=== PATIENT | male | born 1950 | race Caucasian/White ===

== ENCOUNTER 2018-10-20 09:45 | Emergency (ER) | payer OTHER, SELFPAY ==
[2018-10-20 09:55] VITALS: BP 161/96; PULSE 88; RESP 14; TEMP 36.3; O2SAT 99
--- NOTE | 2018-10-20 10:29 | ED.SKABFB ---
HPI - Skin/Abscess/Foreign Bdy General Chief complaint: Skin/Abscess/Foreign Body Stated complaint: possible internal hemorrhoids Time Seen by Provider: 10/20/18 10:09 Source: patient Mode of arrival: ambulatory History of Present Illness HPI narrative: Patient is a 68-year-old male here for evaluation of what he thinks is an internal hemorrhoid. Patient states that yesterday he had pain with having a bowel movement. He states that he does feel a lump around his rectum. Denies any constipation or diarrhea. No blood in his stool. No fevers. No abdominal pain. Called his primary care doctor today who informed him to come to the emergency department. Related Data Previous Rx's Medication Instructions Recorded sildenafil [Viagra] 1 tab PO SEE INSTRUCTIONS #10 tab 08/05/16 sulfacetamide sodium-sulfur 57 gm TP QDAY #1 bot 08/05/16 simvastatin 1 tab PO QDAY #90 tab 08/04/17 amoxicillin-pot clavulanate 1 tab PO BID #14 tab 10/20/18 [Augmentin] docusate sodium [Colace] 100 mg PO BID PRN #20 cap 10/20/18 hydrocodone-acetaminophen [[place]] 1 tab PO Q4-6H PRN #7 tab 10/20/18 Allergies Allergy/AdvReac Type Severity Reaction Status Date / Time lisinopril [LISINOPRIL] AdvReac Severe Anaphylaxis Verified 10/20/18 12:18 Review of Systems Constitutional Denies fever(s) Gastrointestinal Gastrointestinal: Denies abdominal pain, Denies change in bowel habits, Denies constipation, Denies cramping, Denies diarrhea, Denies loose stools, Denies nausea and Denies vomiting Comments: Pain around the rectum with bowel movements per Genitourinary Denies dysuria, Denies flank pain and Denies testicular pain Musculoskeletal Denies myalgias and Denies arthralgias Integumentary/Breasts Denies lesions and Denies rash Hematologic/Lymphatic Denies easy bleeding and Denies easy bruising [facility] Medical History Hyperlipidemia (Acute) Surgical History Status post LASIK surgery Social History marital status: Smoking Status: Former smoker Exam Initial Vital Signs Initial Vital Signs: Vital Signs Temperature 97.4 F L 10/20/18 09:55 Pulse Rate 88 10/20/18 09:55 Respiratory Rate 14 10/20/18 09:55 Blood Pressure 161/96 H 10/20/18 09:55 Pulse Oximetry 99 10/20/18 09:55 Const General: cooperative, comfortable, well developed, well groomed and No acute distress Orientation: alert, awake and oriented x3 HENMT Head: normal to inspection and normocephalic Resp Effort & Inspection: normal respiratory effort Auscultation: clear to auscultation bilaterally Cardio Rate: regular rate Rhythm: regular rhythm Pulses: radial pulses present GI Inspection: non-distended Palpation: soft, No firm and No tender Rectal Exam: normal sphincter tone, No fissure, No laceration, mass and tenderness Skin Lesions: no lesions Rashes: no rashes Neuro General: alert, awake and oriented x3 Extrem General: normal to inspection and capillary refill normal Psych Appearance: grossly normal and well kempt Course Orders Ordered: ED Orders 10/20/18 10:29 CT pelvis w con Stat 10/20/18 10:45 Complete Blood Count AUTO DIFF Stat 10/20/18 11:15 Basic Metabolic Panel Stat Ceftriaxone Sodium/Dextrose (Rocephin) 1 gm in 50 mls @ 100 mls/hr IV NOW ONE Stop: 10/20/18 13:34 Discontinued Medications Sodium Chloride (Normal Saline 0.9%) 1,000 mls @ 1,000 mls/hr IV BOLUS ONE Stop: 10/20/18 11:28 Last Infusion: 10/20/18 12:18 Dose: 0 mls/hr Admin: 10/20/18 10:58 Dose: 1,000 mls/hr Vital Signs - 8 hr 10/20/18 09:55 10/20/18 11:10 10/20/18 12:00 Temperature 97.4 F L Pulse Rate 88 76 76 Respiratory Rate 14 16 Blood Pressure 161/96 H Blood Pressure [Left Arm] 149/95 H 156/91 H Pulse Oximetry 99 94 98 10/20/18 13:13 Temperature Pulse Rate 67 Respiratory Rate 14 Blood Pressure Blood Pressure [Left Arm] 136/91 H Pulse Oximetry 98 MDM - Skin/Abscess/Foreign Bdy Lab Data Attestation: I reviewed the patient's lab results. Result diagrams: 10/20/18 10:45 10/20/18 11:15 Lab Results 10/20/18 10/20/18 Range/Units 10:45 11:15 WBC 7.6 (4.5-11.0) X10^3/uL RBC 4.79 (4.5-5.9) X10^6/uL Hgb 14.9 (13.5-17.5) g/dL Hct 44.1 (41-53) % MCV 92.0 (80-100) fL MCH 31.0 (26-34) PG MCHC 33.7 (30-36) % RDW 13.5 (11.6-14.8) % Plt Count 167 (150-400) X10^3/uL Neut % (Auto) 74.2 (50-75) % Lymph % (Auto) 10.8 L (25-40) % [place] % (Auto) 11.4 (3-14) % Eos % (Auto) 3.1 (2-4) % Baso % (Auto) 0.5 (0-2) % Neut # (Auto) 5700 (4719-3168) /uL Sodium 140 (137-145) mmol/L Potassium 4.9 (3.4-5.1) mmol/L Chloride 102 (98-107) mmol/L Carbon Dioxide 27 (22-32) mmol/L BUN 25 H (9-20) mg/dL Creatinine 0.90 (0.66-1.25) mg/dL Estimated GFR > 60.0 (>60) mL/min BUN/Creatinine Ratio 27.8 H (6-22) Glucose 113 H (80-110) mg/dL Calcium 9.1 (8.4-10.2) mg/dL Imaging Data CT scan - pelvis: Radiologist's impression: PROCEDURE: CT PELVIS W CON INDICATIONS: Concern for perirectal/anal abscess TECHNIQUE: After the administration of intravenous contrast, 5 mm thick sections acquired from the iliac crests to the symphysis. 5 mm coronal and sagittal reformats were acquired. For radiation dose reduction, the following was used: automated exposure control, adjustment of mA and/or kV according to patient size. COMPARISON: None. FINDINGS: Image quality: Excellent. Peritoneum and bowel: Bowel loops demonstrate normal wall thickness and caliber. No free fluid or air. Genitourinary: Bladder wall thickness is normal. Nodes and vessels: No iliac, pelvic, or inguinal adenopathy by size criteria. Iliac vessels demonstrate normal size and enhancement. Bones: No suspicious bony lesions. Miscellaneous: No inguinal hernias. There is a 30 mm AP by 10 mm transverse enhancing low attenuation fluid collection to the left of midline anterior to the rectum. IMPRESSION: 1. Enhancing fluid collection in the left perirectal region as above most suggestive of abscess. Dictated by: Olya Pastor M.D. on 10/20/2018 at 12:44 Approved by: Olya Pastor M.D. on 10/20/2018 at 12:45 [facility] Narrative Medical decision making narrative: Patient does have some residual hemorrhoidal tissue with this does not seem to be the cause of his symptoms today. He does have a mass located at the 7/8:00 position in his rectum. Does not extend into the rectal vault. CT scan does show what appears to be a 1 cm x 3 cm perirectal abscess. This area on exam is fairly close to the sphincter muscle. I had a long discussion with the patient regarding his options to include a trial of oral antibiotics to see if this does not improve his symptoms. I did inform him that the downside of this was that his symptoms could worsen and could require more extensive incision and drainage. I did inform him that the 2nd option would be to perform an incision and drainage. Did state that this area was fairly close to the sphincter muscle and injuring the sphincter muscle would be a concern. We did discuss consulting surgery today. After this discussion the patient opted for oral antibiotics. He was given a dose of Rocephin IV here in the emergency department and a prescription for medication to take at home. We did discuss the importance of good regular bowel movements. He was given return precautions. If he does return to the emergency department surgical consult may be warranted. Patient expressed understanding and agreement with plan. Discharge Plan Departure Patient Disposition: Home Clinical Impression: Perirectal abscess Instructions: Anal Abscess Activity Restrictions/Additional Instructions: After our discussion today you decided to try a course of oral antibiotics. This is not unreasonable given year current situation in the size of the abscess. Take the medication likely discussed. If over the next couple days your symptoms worsen to include worsening pain, increase in size, problems with having bowel movements, fevers, you do need to return to the emergency department. Otherwise follow up with your primary care doctor. Prescriptions: New hydrocodone-acetaminophen [[place]] 5-325 mg tablet 1 tab PO Q4-6H PRN (Reason: pain) Qty: 7 RF: 0 docusate sodium [Colace] 100 mg capsule 100 mg PO BID PRN (Reason: constipation) Qty: 20 RF: 0 amoxicillin-pot clavulanate [Augmentin] 875-125 mg tablet 1 tab PO BID Qty: 14 RF: 0 No Action sildenafil [Viagra] 25 MG tablet 1 tab PO SEE INSTRUCTIONS Qty: 10 RF: 0 sulfacetamide sodium-sulfur 57 GM lotion 57 gm TP QDAY Qty: 1 RF: 0 simvastatin 20 MG tablet 1 tab PO QDAY Qty: 90 RF: 0
[2018-10-20 10:57] LABS: Add Manual Diff / Slide Review NO; Basophils Percent Auto 0.5 % (0-2); Eosinophils Percent Auto 3.1 % (2-4); Hematocrit 44.1 % (41-53); Hemoglobin 14.9 g/dL (13.5-17.5); Lymphocytes Percent Auto 10.8 % (25-40); Mean Corpuscular HGB Conc 33.7 % (30-36); Monocytes Percent Auto 11.4 % (3-14); Neutrophils Absolute Auto 5700 /uL (3000-5900); Neutrophils Percent Auto 74.2 % (50-75); Platelet Count 167 X10^3/uL (150-400); Red Blood Cell Count 4.79 X10^6/uL (4.5-5.9); Red Cell Distribution Width 13.5 % (11.6-14.8); White Blood Cell Count 7.6 X10^3/uL (4.5-11.0)
[2018-10-20] MEDS: SODIUM CHLORIDE 0.9% 1,000 ML 1000 ML IV (10:58)
--- NOTE | 2018-10-20 11:07 | PC.NURSE ---
pt hx of hemorrhoids, pt reports, increase in pain onset yesterday, used prep h, without relief. left side worsen. denies fever,chills or vomiting. denies abdominal pain or back pain.
[2018-10-20 11:10] VITALS: BP 149/95; PULSE 76; RESP 16; O2SAT 94
[2018-10-20 11:43] LABS: BUN Creatinine Ratio 27.8 (6-22); Blood Urea Nitrogen 25 mg/dL (9-20); Calcium 9.1 mg/dL (8.4-10.2); Carbon Dioxide 27 mmol/L (22-32); Chloride 102 mmol/L (98-107); Estimated Glomerular Filt Rate > 60.0 mL/min (>60); Glucose 113 mg/dL (80-110); HEMOLYSIS < 15 (0-50); Potassium 4.9 mmol/L (3.4-5.1); Sodium 140 mmol/L (137-145)
[2018-10-20 12:00] VITALS: BP 156/91; PULSE 76; O2SAT 98
[2018-10-20 13:13] VITALS: BP 136/91; PULSE 67; RESP 14; O2SAT 98
[2018-10-20] MEDS: CEFTRIAXONE 1 GM/50 ML FROZ.PIGGY IV (13:43)
[2018-10-20 14:27] VITALS: BP 147/92; PULSE 72; RESP 14; O2SAT 98
[2018-10-20] MEDS: HYDROCODONE/ACET 5/325 TABLET 1 TAB PO (14:31)
== END 2018-10-20 14:52 | disposition home or self-care (01) ==
PROVIDERS: Emergency Provider Emergency Medicine; PCP Family Medicine
DX: K61.1 Rectal abscess (principal)
CPT/HCPCS: 36415; 36591; 72193; 80048; 85025; 96361; 96365; 99283; 99285; Q9967

== ENCOUNTER 2018-10-21 19:32 | Emergency (ER) | payer OTHER, SELFPAY ==
[2018-10-21 19:36] VITALS: BP 149/89; PULSE 70; RESP 14; TEMP 37; O2SAT 98
--- NOTE | 2018-10-21 19:51 | ED.GIBLEED ---
HPI - GI Bleed General Chief complaint: GI Bleed Stated complaint: ABSCESS IN RECTAL BLEEDING Time Seen by Provider: 10/21/18 19:51 Source: patient and family Mode of arrival: ambulatory Limitations: no limitations History of Present Illness HPI Narrative: 68-year-old male, nonsmoker presents to the emergency department with his and a chief complaint of some drainage from his rectum for the past 30 min. He was seen and evaluated a few days ago and was told he has a small perirectal abscess confirmed by physical exam and CT scan. The patient has been placed on antibiotics and is feeling much better on the whole. He states he was walking and felt liquid between his buttocks. He denies any fever chills nor nausea or vomiting. Onset (ago): minute(s) Severity: mild Associated symptoms: denies other symptoms Related Data Previous Rx's Medication Instructions Recorded sildenafil [Viagra] 1 tab PO SEE INSTRUCTIONS #10 tab 08/05/16 sulfacetamide sodium-sulfur 57 gm TP QDAY #1 bot 08/05/16 simvastatin 1 tab PO QDAY #90 tab 08/04/17 amoxicillin-pot clavulanate 1 tab PO BID #14 tab 10/20/18 [Augmentin] docusate sodium [Colace] 100 mg PO BID PRN #20 cap 10/20/18 hydrocodone-acetaminophen [[place]] 1 tab PO Q4-6H PRN #7 tab 10/20/18 Allergies Allergy/AdvReac Type Severity Reaction Status Date / Time lisinopril [LISINOPRIL] AdvReac Severe Anaphylaxis Verified 10/21/18 19:37 Review of Systems Review of Systems All systems reviewed & are unremarkable except as noted in HPI and below Constitutional Denies chills, Denies fever(s), Denies lethargy and Denies weakness Eyes Denies change in vision, Denies eye discharge, Denies irritation and Denies loss of vision ENT Ears, Nose, Mouth, and Throat: Denies change in voice, Denies neck pain and Denies sore throat Cardiovascular Denies chest pain, Denies irregular heart rhythm, Denies lightheadedness, Denies palpitations, Denies dyspnea, Denies dyspnea on exertion and Denies orthopnea Respiratory Denies cough, Denies dyspnea, Denies dyspnea on exertion and Denies wheezing Gastrointestinal Gastrointestinal: Denies abdominal pain, Denies change in bowel habits, Denies diarrhea, Denies nausea and Denies vomiting Comments: Rectal drainage with bleeding Genitourinary Denies hematuria, Denies flank pain, Denies urinary incontinence and Denies urinary urgency Musculoskeletal Denies neck pain Integumentary/Breasts Denies pruritus, Denies erythema, Denies rash and Denies wounds Neurologic Denies confusion, Denies loss of vision and Denies weakness Psychiatric Denies anxiety, Denies confusion, Denies depression, Denies homicidal ideation and Denies suicidal ideation Endocrine Denies palpitations Hematologic/Lymphatic Denies easy bruising Allergic/Immunologic Denies wheezing [facility] Medical History Hyperlipidemia (Acute) Surgical History Status post LASIK surgery Social History marital status: Smoking Status: Former smoker Exam Narrative Exam Narrative: GEN: AOx3 and in mild distress EYES: Pupils are equal, round, and reactive to light and accommodation. Extraoccular muscles are intact bilaterally. There is no subconjunctival hemorrhage or exudate. CHEST: Lungs are clear to auscultation bilaterally and free of wheezes, rales, or rhonchi. Heart rate is regular rhythm, there are no murmurs, clicks, rubs, or gallops. There is no chest wall tenderness. ABD: Abdomen is soft and nontender. There is no guarding or rebound. Bowel sounds are normal in all 4 quadrants. There is no mass or organomegaly. RECTAL: Purulent drainage spontaneously draining from perirectal abscess. Very minimal swelling, no rectal pain. Very minimal bleeding EXT: Full painless ROM of all extremities with no loss of sensation or strength. SKIN: Warm, pink, and dry. No erythema or rash Initial Vital Signs Initial Vital Signs: Vital Signs Temperature 98.6 F 10/21/18 19:36 Pulse Rate 70 10/21/18 19:36 Respiratory Rate 14 10/21/18 19:36 Blood Pressure 149/89 H 10/21/18 19:36 Pulse Oximetry 98 10/21/18 19:36 Course Orders Ordered: ED Orders 10/21/18 19:58 Wound Culture and Gram Stain Stat Vital Signs - 8 hr 10/21/18 19:36 Temperature 98.6 F Pulse Rate 70 Respiratory Rate 14 Blood Pressure 149/89 H Pulse Oximetry 98 Discharge Plan Departure Patient Disposition: Home Clinical Impression: Abscess, perirectal Discharge Date/Time: 10/21/18 20:13 Interventions: ED Discharge Assessment Last Done: 10/21/18 20:12 Instructions: Anal Abscess Activity Restrictions/Additional Instructions: *You have been diagnosed with [ draining perirectal abscess ] *What to do: *Please continue to take medications as directed. The drainage will likely persist for a few days. *Follow up with your primary care provider in 2-3 days, call for an appointment. Let them know you were seen in the Emergency Department and that we ask that you be seen in follow up *Return to ER if you should have any new, worsening or concerning symptoms, such as [worsening pain, fever >101F, shaking chills, or other bothersome symptoms. ] *The culture we obtained will take a few days to result, if any changes need to be made to your antibiotics we will call you. No news is good news. Prescriptions: No Action sildenafil [Viagra] 25 MG tablet 1 tab PO SEE INSTRUCTIONS Qty: 10 RF: 0 sulfacetamide sodium-sulfur 57 GM lotion 57 gm TP QDAY Qty: 1 RF: 0 simvastatin 20 MG tablet 1 tab PO QDAY Qty: 90 RF: 0 hydrocodone-acetaminophen [[place]] 5-325 mg tablet 1 tab PO Q4-6H PRN (Reason: pain) Qty: 7 RF: 0 docusate sodium [Colace] 100 mg capsule 100 mg PO BID PRN (Reason: constipation) Qty: 20 RF: 0 amoxicillin-pot clavulanate [Augmentin] 875-125 mg tablet 1 tab PO BID Qty: 14 RF: 0 Referrals: Nelson Collazo DO [Primary Care Provider] -
--- NOTE | 2018-10-21 20:03 | PC.NURSE ---
Pt got dx with rectal abscess and noticed blood from rectum after the bowel movement. Pt currently on oral abx medication and had received IV abx during ER visit. Pt reports pain improved alot since ER visit. Assisted Dr Medina for rectal exam, noticed abscess draining mixed with blood. Stephen Medina able to express more drainage during the exam. Pt tolerated well.
== END 2018-10-21 20:13 | disposition home or self-care (01) ==
PROVIDERS: Emergency Provider Emergency Medicine; PCP Family Medicine
DX: K61.1 Rectal abscess (principal)
CPT/HCPCS: 87070; 87075; 87147; 87205; 99282; 99283